=== PATIENT | male | born 1975 | race Caucasian/White ===

== ENCOUNTER 2021-06-20 08:53 | Emergency (ER) | payer BC ==
[2021-06-20 09:28] LABS: Absolute Lymphocytes (CBC) 0.9 K/uL (0.7-4.9); Hematocrit 43.5 % (39.6-49.0); Lymphocytes % 13.1 % (15.3-44.8); MPV 8.3 fL (7.6-11.3); Protime INR 1.08; RBC Red Blood Cell Count 5.95 M/uL (4.33-5.43)
--- NOTE | 2021-06-20 09:44 | RAD REPORT ---
EXAM DESCRIPTION: RAD - Chest Single View - 06/20/2021 9:30 am CLINICAL HISTORY: CHEST PAIN COMPARISON: None TECHNIQUE: AP portable chest image was obtained 06/20/2021 9:30 am . FINDINGS: Lungs are clear. Heart and vasculature are normal. No measurable pleural effusion and no p neumothorax. No acute bony abnormality seen. No acute aortic findings suspected. IMPRESSION: No acute cardiopulmonary process.
[2021-06-20 09:56] LABS: ALT/SGPT 60 U/L (12-78); AST/SGOT 21 U/L (15-37); Albumin 3.8 g/dL (3.4-5.0); Alkaline Phosphatase 65 U/L (45-117); BUN Blood Urea Nitrogen 14 mg/dL (7-18); Bicarbonate 27 mmol/L (21-32); Bilirubin Direct 0.1 mg/dL (0-0.2); Bilirubin Total 0.4 mg/dL (0.2-1.0); Glucose Level 109 mg/dL (74-106); Magnesium 2.3 mg/dL (1.8-2.4); Protein, Total 8.1 g/dL (6.4-8.2); Sodium Level 138 mmol/L (136-145); Troponin (Emerg Dept Use Only) < 0.02 ng/mL (0.0-0.045)
[2021-06-20] MEDS ORDERED: ASPIRIN 81 MG CHEWABLE TABLET ONE (09:56)
[2021-06-20 10:17] LABS: NT PRO-BNP < 5 pg/mL (<125)
--- NOTE | 2021-06-20 12:02 | RAD REPORT ---
EXAM DESCRIPTION: CT - Head Brain Wo Cont - 06/20/2021 11:36 am CLINICAL HISTORY: Dizziness;Numbness COMPARISON: No comparisons TECHNIQUE: Axial 5 mm thick images of the head were obtained without IV contrast. All CT scans are performed using dose optimization technique as appropriate and may include automated exposure control or mA/KV adjustment according to patient size. FINDINGS: No intracranial hemorrhage, mass, edema or shift of mid-line structures. No acute infarcti on changes seen. No abnormal extra-axial fluid collections. Ventricles are normal. Mastoid air cells and visualized portions of the paranasal sinuses are clear. Middle ears are clear. No acute bony findings. IMPRESSION: Negative non-contrast CT head examination.
--- NOTE | 2021-06-20 14:02 | RAD REPORT ---
EXAM DESCRIPTION: MRI - Lumbar Spine Wo David - 06/20/2021 1:38 pm CLINICAL HISTORY: Bilateral leg numbness COMPARISON: 06/19/2021 TECHNIQUE: Sagittal T1-weighted, T2-weighted and T2-STIR weighted sequences were obtained. Axial T1 -weighted and heavily T2-weighted sequenceswere obtained through the lumbar disc levels. FINDINGS: Lumbar bodies are normal in height and alignment. No suspicious marrow signal. No paraspin al masses. Conus is normal with no clumping or thickening of the cauda equina. T12-L1 level: Small left paracentral disc protrusion without significant central spinal stenosis or n eural foraminal narrowing. L1-2 level: No significant findings. L2-3 level: No significant findings. L3-4 level: Mild facet and ligamentum flavum hypertrophy without neural foraminal narrowing or centra l spinal stenosis. L4-5 level: Ligamentum flavum facet hypertrophy the neural foraminal narrowing or central spinal sten osis. L5-S1 level: Epidural lipomatosis noted but no central spinal stenosis however. The neural foramen ar e patent. IMPRESSION: Mild degenerative disc disease as noted above without specific findings to explain radic ulopathy. Epidural lipomatosis noted L5-S1 but the spinal canal is adequate at the imaged levels. No significant neural foraminal narrowing or central spinal stenosis is identified.
--- NOTE | 2021-06-20 15:20 | EDPHYS ---
Physician Documentation [facility] Name: Adin Lancaster Age: 46 yrs Sex: Male : 1975 Arrival Date: 06/20/2021 Time: 08:54 Bed 14 Private MD: DARRYL Physician Timothy Bautista HPI: 06/20 18:31 This 46 yrs old Male presents to ER via Wheelchair with complaints of Chest kb Pain. 18:31 The patient or guardian reports chest pain that is located primarily in the substernal kb area. Onset: this morning, at 07:00. The pain does not radiate. Associated signs and symptoms: Pertinent positives: nausea. The chest pain is described as aching. Duration: The patient or guardian reports a single episode. Modifying factors: The symptoms are alleviated by nothing. the symptoms are aggravated by nothing. Severity of pain: At its worst the pain was moderate in the emergency department the pain is unchanged. The patient has not experienced similar symptoms in the past. The patient has been recently seen by a physician:. Pt reports chest pain that started at 0700 this morning with nausea and cold sweats. Also reports numbness and tingling to bilateral lower extremities that started 2 weeks ago and has gotten worse. States he went to his PCP and had CT done yesterday. Had an appt for 0900 today to go over results, but the chest pain brought him to the ER instead. . Historical: - Allergies: 08:57 No Known Allergies; tw2 - Home Meds: 08:57 losartan-hydrochlorothiazide 100-12.5 mg oral tab 1 tab once daily [Active]; metformin tw2 500 mg Oral tab 1 tab 2 times per day [Active]; 08:58 Low-Testosterone shots, weekly (Last Dose: 06/06/2021 08:00) [Active]; tw2 - PMHx: 08:57 Hypertensive disorder; Diabetes mellitus; tw2 - PSHx: 08:57 None; tw2 - Immunization history:: Client reports having NOT received the Covid vaccine. - Social history:: Smoking status: Patient reports use of chewing tobacco. Patient uses alcohol, "couple times a week". - : The history from the nurse's notes was reviewed. ROS: 09:00 Constitutional: Negative for fever, chills, and weight loss. kb 09:00 Cardiovascular: Positive for chest pain, Negative for edema, orthopnea, palpitations, paroxysmal nocturnal dyspnea. 09:00 Abdomen/GI: Positive for nausea, Negative for abdominal pain, vomiting, diarrhea. 09:00 MS/extremity: Positive for pain, of the right leg and left leg. 09:00 Neuro: Positive for numbness, tingling, of the right leg and left leg, . 09:00 All other systems are negative. kb Exam: 09:00 Constitutional: This is a well developed, well nourished patient who is awake, alert, kb and in no acute distress. Head/Face: Normocephalic, atraumatic. ENT: Moist Mucous membranes Cardiovascular: Regular rate and rhythm with a normal S1 and S2. No gallops, murmurs, or rubs. No pulse deficits. Respiratory: Respirations even and unlabored. No increased work of breathing, no retractions or nasal flaring. Abdomen/GI: Soft, non-tender. No distention Skin: Warm, dry with normal turgor. Normal color. MS/ Extremity: Pulses equal, no cyanosis. Neurovascular intact. Full, normal range of motion. Neuro: Awake and alert, GCS 15, oriented to person, place, time, and situation. Moves all extremities. Normal gait. Psych: Awake, alert, with orientation to person, place and time. Behavior, mood, and affect are within normal limits. 09:02 ECG was reviewed by the Attending Physician. kb Vital Signs: 08:55 BP 177 / 113; Pulse 85; Resp 18; Temp 97.9(TE); Pulse Ox 98% on R/A; Weight 102.06 kg tw2 (R); 09:01 BP 161 / 99 RA Sitting; tw2 09:37 BP 140 / 89; Pulse 81; Resp 18; Temp 96.3; Pulse Ox 99% ; aj2 13:57 BP 120 / 66; Pulse 84; Resp 18; Temp 98.4; Pulse Ox 99% ; aj2 19:55 BP 102 / 69; Pulse 80; Resp 18; Temp 98.8; Pulse Ox 97% on R/A; Pain 0/10; kc4 23:36 BP 101 / 60; Pulse 88; Resp 18; Temp 98.7; Pulse Ox 100% ; Pain 0/10; kc4 23:56 BP 100 / 66; Pulse 78; Resp 18; Temp 98.8(O); Pulse Ox 100% on R/A; kc4 MDM: 09:00 Patient medically screened. kb 12:20 ED course: Pt tried to urinate and was unable to. Bladder scan done and revealed >500cc kb urine. Romero placed and 900cc drained. 16:23 Data reviewed: vital signs, nurses notes. Data interpreted: Pulse oximetry: on room air kb is 99 %. Interpretation: normal. Counseling: I had a detailed discussion with the patient and/or guardian regarding: the historical points, exam findings, and any diagnostic results supporting the discharge/admit diagnosis, lab results, radiology results, the need for further work-up and treatment in the hospital. ED course: Pt now unable to move legs or bear weight. MRI brain, c-spine and t-spine ordered. . 18:45 Physician consultation: Satnam Cobos MD was contacted at 18:46, regarding consult, kb patient's condition, if MRIs normal, LP recommended. Transition of care: After a detail discussion of the patient's case, care is transferred to Tobias Aguilar MD. 21:02 Patient medically screened. analy 06/20 09:00 Order name: Basic Metabolic Panel; Complete Time: 10:24 kb 06/20 09:00 Order name: CBC with Diff; Complete Time: 09:51 kb 06/20 09:00 Order name: LFT's; Complete Time: 10:24 kb 06/20 09:00 Order name: Magnesium; Complete Time: 10:24 kb 06/20 09:00 Order name: NT PRO-BNP; Complete Time: 10:24 kb 06/20 09:00 Order name: PT-INR; Complete Time: 09:51 kb 06/20 09:00 Order name: Troponin (emerg Dept Use Only); Complete Time: 10:24 kb 06/20 09:00 Order name: XRAY Chest (1 view); Complete Time: 09:51 kb 06/20 09:18 Order name: MRI Lumbar Spine wo Con; Complete Time: 14:06 kb 06/20 11:25 Order name: CT Head Brain wo Cont; Complete Time: 12:07 kb 06/20 14:09 Order name: Troponin (emerg Dept Use Only); Complete Time: 14:58 kb 06/20 16:13 Order name: MRI - Brain Wo Cont; Complete Time: 21:03 kb 06/20 18:44 Order name: SARS-COV-2 RT PCR; Complete Time: 18:45 EDMS 06/20 09:00 Order name: EKG; Complete Time: 09:01 kb 06/20 09:00 Order name: Cardiac monitoring; Complete Time: 09:17 kb 06/20 09:00 Order name: EKG - Nurse/Tech; Complete Time: 09:17 kb 06/20 09:00 Order name: IV Saline Lock; Complete Time: 09:17 kb 06/20 09:00 Order name: Labs collected and sent; Complete Time: 09:17 kb 06/20 09:00 Order name: O2 Per Protocol; Complete Time: 09:17 kb 06/20 09:00 Order name: O2 Sat Monitoring; Complete Time: 09:17 kb 06/20 12:21 Order name: Bladder Scanner; Complete Time: 14:07 kb 06/20 14:09 Order name: EKG; Complete Time: 14:09 kb 06/20 14:09 Order name: EKG - Nurse/Tech; Complete Time: 14:28 kb 06/20 16:23 Order name: Thoracic Spine Wo Contr; Complete Time: 21:03 EDMS 06/20 16:26 Order name: C Spine Wo Cont; Complete Time: 21:03 EDMS 06/20 20:41 Order name: Romero; Complete Time: 21:35 kc4 EC:02 Rate is 86 beats/min. Rhythm is regular. QRS [place] is Normal. [place] interval is normal at kb 184 msec. QRS interval is normal at 96 msec. QT interval is normal at 340 msec. Administered Medications: 09:33 Drug: Aspirin Chewable Tablet 324 mg Route: PO; aj2 17:17 Drug: NS 0.9% 1000 ml Route: IV; Rate: 100 ml/hr; Site: right antecubital; iw 21:35 Drug: NS 0.9% 1000 ml Route: IV; Rate: 1 bolus; Site: right antecubital; kc4 23:19 Follow up: Response: No adverse reaction; IV Status: Completed infusion kc4 06/21 00:02 Follow up: IV Status: Completed infusion kc4 Disposition: 06/20 21:19 Co-signature as Attending Physician, Timothy Bautista MD I agree with the assessment and analy plan of care. Disposition Summary: 06/20/21 21:19 Transfer Ordered Transfer Location: [facility] analy Reason: Higher level of care analy Condition: Serious(06/20/21 21:19) analy Problem: new analy Symptoms: have improved analy Accepting Physician: to nicu, dr lerma(06/21/21 00:03) kc4 Diagnosis - Periodic paralysis - ascending, weakness and sensory analy Forms: - Medication Reconciliation Form analy - SBAR form analy Signatures: Dispatcher [employer] EDNH Marge Martinez, LUI GARNETT-Timothy Lacey MD MD cha Mickail, Joel, PA PA jmm Williams, Irene, LEXIS RN iw Maria Luz Lara RN RN tw2 Ely Petersen Kourtney kc4 Corrections: (The following items were deleted from the chart) 16:23 15:20 Home kb kb 16:23 15:20 Stable kb kb 16:23 15:20 Chest pain, unspecified kb kb 16:23 15:20 Retention of urine, unspecified kb kb 16:23 15:20 Decreased sensation of lower extremities kb kb 17:51 16:12 CORONAVIRUS+MR.LAB.BRZ ordered. [facility] EDMS 18:29 18:26 Constitutional: This is a well developed, well nourished patient who is awake, kb alert, and in no acute distress. Head/Face: Normocephalic, atraumatic. ENT: Moist Mucous membranes Cardiovascular: Regular rate and rhythm with a normal S1 and S2. No gallops, murmurs, or rubs. No pulse deficits. Respiratory: Respirations even and unlabored. No increased work of breathing, no retractions or nasal flaring. Abdomen/GI: Soft, non-tender. No distention Skin: Warm, dry with normal turgor. Normal color. MS/ Extremity: Pulses equal, no cyanosis. Neurovascular intact. Full, normal range of motion. Neuro: Awake and alert, GCS 15, oriented to person, place, time, and situation. Moves all extremities. Normal gait. Psych: Awake, alert, with orientation to person, place and time. Behavior, mood, and affect are within normal limits. kb 18:30 16:23 Counseling: I had a detailed discussion with the patient and/or guardian regarding: the historical points, exam findings, and any diagnostic results supporting the discharge/admit diagnosis, lab results, radiology results, the need for further work-up and treatment in the hospital, matthew 18: The history from the nurse's notes was reviewed. kb 18: Constitutional: Negative for fever, chills, and weight loss, kb 18: Cardiovascular: Positive for chest pain, Negative for edema, orthopnea, kb palpitations, paroxysmal nocturnal dyspnea, kb : Abdomen/GI: Positive for nausea, Negative for abdominal pain, vomiting, diarrhea, kb 18: Neuro: Positive for numbness, tingling, of the right leg and left leg, , kb : MS/extremity: Positive for pain, of the right leg and left leg, kb : All other systems are negative, matthew castro 06/21 00:03 06/20 21:19 to nicu, dr florentin beckford kc4
--- NOTE | 2021-06-20 15:20 | ER ---
Nurse's Notes [facility] Name: Adin Lancaster Age: 46 yrs Sex: Male : 1975 Arrival Date: 06/20/2021 Time: 08:54 Bed 14 Private MD: Diagnosis: Periodic paralysis-ascending, weakness and sensory Presentation: 06/20 08:55 Chief complaint: Patient states: chest pain started this morning. felt like i needed to tw2 pop my back, then felt like heartburn. Chief complaint: Patient states: also started being nausea. Came for CT scan, for numbness in my legs. I can barely walk. Coronavirus screen: At this time, the client does not indicate any symptoms associated with coronavirus-19. Ebola Screen: Patient denies travel to an Ebola-affected area in the 21 days before illness onset. Initial Sepsis Screen: Does the patient meet any 2 criteria? No. Patient's initial sepsis screen is negative. Does the patient have a suspected source of infection? No. Patient's initial sepsis screen is negative. Risk Assessment: Do you want to hurt yourself or someone else? Patient reports no desire to harm self or others. Note provider MARIOLA Lay in triage performing assessment. Onset of symptoms was June 20, 2021. 08:55 Method Of Arrival: Wheelchair tw2 08:55 Acuity: CAROLA 3 tw2 23:32 Note Contacted [facility] to give report. RN put on hold for 15min. was disconnected. RN enzo called back and was pit on hold for 10 min. transfer center took RNs number and [facility] will call this RN back. 23:55 Note Gave report to Andrey PIRES at [facility]. Note This RN gave report to EMS./ pt ready kc4 for transport. Triage Assessment: 09:00 General: Appears in no apparent distress. obese, well groomed, Behavior is calm, tw2 cooperative, appropriate for age. Pain: Complains of pain in xiphoid area and mid-sternal area. Cardiovascular: Reports chest pain, Denies shortness of breath. Historical: - Allergies: 08:57 No Known Allergies; tw2 - Home Meds: 08:57 losartan-hydrochlorothiazide 100-12.5 mg oral tab 1 tab once daily [Active]; metformin tw2 500 mg Oral tab 1 tab 2 times per day [Active]; 08:58 Low-Testosterone shots, weekly (Last Dose: 06/06/2021 08:00) [Active]; tw2 - PMHx: 08:57 Hypertensive disorder; Diabetes mellitus; tw2 - PSHx: 08:57 None; tw2 - Immunization history:: Client reports having NOT received the Covid vaccine. - Social history:: Smoking status: Patient reports use of chewing tobacco. Patient uses alcohol, "couple times a week". - : The history from the nurse's notes was reviewed. Screenin:01 Abuse screen: Denies threats or abuse. Nutritional screening: No deficits noted. tw2 Tuberculosis screening: No symptoms or risk factors identified. Fall Risk None identified. Assessment: 09:37 Pain: Pain: Denies pain. Pain: Complains of pain in chest Pain radiates to back Pain aj2 currently is 4 out of 10 on a pain scale. Quality of pain is described as pressure, Pain began suddenly, 4 hours ago. Is continuous, Alleviated by nothing. Aggravated by increased activity, Noted to be quiet/stoic. Cardiovascular: No deficits noted. Respiratory: No deficits noted. 09:45 Reassessment: Patient reports taking three 81mg ASA prior to arrival; handbook writer gave one aj2 ASA 81 mg by mouth.. 12:58 Reassessment: Patient is alert, oriented x 3, equal unlabored respirations, skin aj2 warm/dry/pink. 14:01 Reassessment: Patient appears in no apparent distress at this time. Patient is alert, aj2 oriented x 3, equal unlabored respirations, skin warm/dry/pink. Patient states feeling better. General: Appears in no apparent distress. comfortable, obese, well groomed, well nourished. 16:18 Reassessment: attempted to place pt in wheelchair for dispo home, pt now states he has iw no feeling in his legs and cannot stand on his own, states he was able to walk in but now is unable to stand to get into wheelchair, LAINE Bird notified. 18:02 Reassessment: Araceli Lancaster () [phone]. jd3 21:00 : Romero in place Urine is clear. kc4 23:15 Reassessment: Patient is alert, oriented x 3, equal unlabored respirations, skin kc4 warm/dry/pink. pt has been having increased acsending numbness and tingling since arrival to ER today. General: Appears distressed, comfortable, obese, well groomed, well nourished, Behavior is calm, cooperative, appropriate for age. Pain: Denies pain. Neuro: Level Vial Curvature Gauger are weak bilaterally Weakness in bilateral hand(s) arm(s) leg(s) foot/feet Tingling in pelvis, right foot, left foot, right leg and left leg Numbness in buttocks, pelvis, right foot, left foot, right leg and left leg. Cardiovascular: No deficits noted. Respiratory: No deficits noted. GI: No deficits noted. Musculoskeletal: Reports weakness in buttocks, pelvis, right foot, left foot, right leg and left leg numbness in buttocks, pelvis, right foot, left foot, right leg and left leg. Vital Signs: 08:55 BP 177 / 113; Pulse 85; Resp 18; Temp 97.9(TE); Pulse Ox 98% on R/A; Weight 102.06 kg tw2 (R); 09:01 BP 161 / 99 RA Sitting; tw2 09:37 BP 140 / 89; Pulse 81; Resp 18; Temp 96.3; Pulse Ox 99% ; aj2 13:57 BP 120 / 66; Pulse 84; Resp 18; Temp 98.4; Pulse Ox 99% ; aj2 19:55 BP 102 / 69; Pulse 80; Resp 18; Temp 98.8; Pulse Ox 97% on R/A; Pain 0/10; kc4 23:36 BP 101 / 60; Pulse 88; Resp 18; Temp 98.7; Pulse Ox 100% ; Pain 0/10; kc4 23:56 BP 100 / 66; Pulse 78; Resp 18; Temp 98.8(O); Pulse Ox 100% on R/A; kc4 Vitals: 09:37 Cardiac Rhythm Assessment Regular. aj2 14:01 Cardiac Rhythm Assessment Regular. aj2 ED Course: 08:54 Patient arrived in ED. as 08:57 Triage completed. tw2 08:57 Arm band placed on. tw2 09:00 Marge Martinez FNP-C [facility]. kb 09:00 Tobias Aguilar MD is Attending Physician. kb 09:05 EKG done, by ED staff, reviewed by Marge Juan DOFFER-C. dh3 09:13 Initial lab(s) drawn, by me, sent to lab. Inserted saline lock: 20 gauge in right 3 antecubital area, using aseptic technique. Blood collected. 09:28 Ely Petersen is Primary Nurse. aj2 09:30 XRAY Chest (1 view) In Process Unspecified. EDMS 09:37 No apparent distress. Resting quietly. aj2 09:37 Patient has correct armband on for positive identification. aj2 09:37 nuclear monitoring technician on. Pulse ox on. aj2 09:37 No provider procedures requiring assistance completed. IV Flushed Converted IV to aj2 saline lock on left. Patient maintains SpO2 saturation greater than 95% on room air. 11:36 CT Head Brain wo Cont In Process Unspecified. EDMS 12:58 Bladder scan performed 500 ml. Romero catheter insertion; 900 cc output. Provider aj2 notified. 13:38 MRI Lumbar Spine wo Con In Process Unspecified. EDMS 14:01 Flushed. aj2 19:18 MRI - Brain Wo Cont In Process Unspecified. EDMS 19:18 Thoracic Spine Wo Contr In Process Unspecified. EDMS 19:18 C Spine Wo Cont In Process Unspecified. EDMS 20:37 Primary Nurse role handed off by Ely Petersen kc4 20:37 Toshia Padilla is Primary Nurse. kc4 20:37 Toshia Padilla is Primary Nurse. kc4 20:37 Toshia Padilla is Primary Nurse. kc4 21:02 Attending Physician role handed off by Tobias Aguilar MD [facility] 21:02 Timothy Bautista MD is Attending Physician. [facility] 21:08 initiated a transfer with Kate from [facility]. mw2 21:34 Romero cath inserted, using sterile technique, 16 Fr., by ky, balloon inflated, to kc4 gravity drainage. 22:42 administrative approval given by Kate Concepcion/ patient has been accepted to [address] [facility] bed 829/ Dr. Reyse accepted the patient in transfer/ report to be called to [phone]. 23:59 Patient transferred, IV remains in place. kc4 Administered Medications: 09:33 Drug: Aspirin Chewable Tablet 324 mg Route: PO; aj2 17:17 Drug: NS 0.9% 1000 ml Route: IV; Rate: 100 ml/hr; Site: right antecubital; iw 21:35 Drug: NS 0.9% 1000 ml Route: IV; Rate: 1 bolus; Site: right antecubital; kc4 23:19 Follow up: Response: No adverse reaction; IV Status: Completed infusion kc4 06/21 00:02 Follow up: IV Status: Completed infusion kc4 Output: 06/20 21:00 Urine: 500ml (Romero); Total: 500ml. kc4 Outcome: 15:20 Discharge ordered by . matthew 21:19 ER care complete, transfer ordered by . analy 23:58 Transferred by ground EMS to [facility]. kc4 23:58 Condition: stable 23:58 Discharge instructions given to patient, EMS, Instructed on the need for transfer. 06/21 00:03 Patient left the ED. kc4 Signatures: Dispatcher [employer] EDMS Marge Martinez, DOFFER-C DOFFER-Ckb Timothy Bautista MD MD cha Martinez, Amelia as Williams, Irene, Maria Luz Palm RN RN RN mansi2 Sona Blanchard 3 Pradeep Bolanos RN RN Vasquez Brannon2 Ely Petersen2 Toshia Padilla kc4 Corrections: (The following items were deleted from the chart) 06/20 18:30 18:25 The history from the nurse's notes was reviewed. kb kb
[2021-06-20] MEDS ORDERED: NA CHLORIDE 0.9% 1,000 ML ONE ×2 (17:38→21:49)
--- NOTE | 2021-06-20 20:21 | RAD REPORT ---
EXAM DESCRIPTION: MRI - Thoracic Spine Wo Contr - 06/20/2021 7:22 pm CLINICAL HISTORY: decreased sensation, inablitily to move lower extr COMPARISON: C Spine Wo Cont dated 06/20/2021 FINDINGS: The vertebral body heights and disc spaces are maintained. Marrow pattern of the thoracic spine is within normal limits. No significant herniated disc, canal stenosis or foraminal stenosis at any level. No paraspinal mass or hematoma. The thoracic cord is normal in size and signal. IMPRESSION: Unremarkable study.
--- NOTE | 2021-06-20 20:25 | RAD REPORT ---
EXAM DESCRIPTION: MRI - C Spine Wo Cont - 06/20/2021 7:21 pm CLINICAL HISTORY: Numbness COMPARISON: None. TECHNIQUE: Sagittal T1-weighted, T2-weighted and T2-STIR sequences were obtained as well as axial T2 medic sequence obtained. FINDINGS: Cervical vertebral bodies are normal in height and alignment. No suspicious marrow edema o r marrow replacing process. Cerebellar tonsils and mid-line skull base show no suspicious finding. No significant finding at the C1 and C2 levels. C2-3 level: Uncovertebral joint hypertrophy with small posterior disc osteophyte complex results in m ild bilateral neural foraminal narrowing. No central spinal stenosis . C3-4 level: Uncovertebral joint hypertrophy with posterior disc osteophyte complex resulting in mild neural foraminal narrowing. No central spinal stenosis. C4-5 level: Uncovertebral joint hypertrophy posterior disc osteophyte complex results in moderate nitish ateral neural foraminal narrowing. Mild effacement of the ventral thecal sac but no significant centr al spinal stenosis . C5-6 level: Posterior disc osteophyte complex with uncovertebral joint hypertrophy and left paracentr al component resulting in moderate central spinal stenosis and moderate neural foraminal narrowing. C7-T1 level: Uncovertebral joint hypertrophy with posterior disc osteophyte complex resulting in mode rate central spinal stenosis, moderate left neural foraminal narrowing, and mild right neural foramin al narrowing. Cervical cord shows no focal narrowing, expansion or signal abnormality. IMPRESSION: Multilevel cervical spondylosis with notable moderate central spinal stenosis at the C6- 7 level. No abnormal cord signal. Varying degrees of neural foraminal narrowing.
--- NOTE | 2021-06-20 20:27 | RAD REPORT ---
EXAM DESCRIPTION: MRI - Brain Wo Cont - 06/20/2021 7:21 pm CLINICAL HISTORY: Numbness COMPARISON: Head CT from 06/20/2021 TECHNIQUE: Sagittal T1-weighted images were obtained along with PD/heavily T2-weighted and T2-FLAIR images. Axial DWI and ADC mapping sequences were also obtained along with coronal heavily T2-weighted images were obtained. FINDINGS: No intracranial hemorrhage, mass or acute infarction. There is no edema or shift of midlin e structures. No extra-axial fluid collections. Montero-matter/white matter junction is preserved. Signa l voids are seen as a normal finding in the major intracranial vessels. Right mastoid effusion. Ethmoid air cell thickening. IMPRESSION: No acute intracranial abnormality.
[2021-06-21 00:28] VITALS: O2SAT 100
[2021-06-21 00:30] VITALS: BP 100/66; TEMP 98.8
== END 2021-06-21 00:03 | disposition short-term general hospital (02) ==
LOC: ER 08:53
DX: G72.3 Periodic paralysis (principal); I10 Essential (primary) hypertension; E11.9 Type 2 diabetes mellitus without complications; F17.220 Nicotine dependence, chewing tobacco, uncomplicated; Z20.822 Contact with and (suspected) exposure to COVID-19
CPT/HCPCS: 96361; 93005 ×3; 85025; 80048; 36415; 83735; 85610; 80076; 84484 ×2; 83880; 70450; 71045; 70551; 72141; 72146; 72148; 51702; 96360; 99285; U0003; J7030 ×2